=== PATIENT | female | born 1955 | race Caucasian/White ===

== ENCOUNTER 2020-06-26 09:45 | Emergency (ER) | payer BC ==
[~2020-06-26] VITALS: Ht 167.6 cm; Wt 83.5 kg
[2020-06-26 09:50] VITALS: Ht 167.6 cm; Wt 83.5 kg
[2020-06-26 10:11] LABS: BASOPHIL % 0.7 % (0.2-1.3); PLATELET COUNT 284 x10^3mcL (179-408); RED CELL DISTRIBUTION WIDTH 12.8 % (12.3-17.7)
[2020-06-26 10:32] LABS: CALCIUM 9.3 mg/dL (8.5-10.1); CARBON DIOXIDE 24.1 mmol/L (21-32); CHLORIDE SERUM 108 mmol/L (98-107); CREATININE SERUM 0.9 mg/dL (0.6-1.0); GFR1 > 60 mL/min; GLUCOSE SERUM 106 mg/dL (74-106); POTASSIUM SERUM 3.5 mmol/L (3.5-5.1); SODIUM SERUM 144 mmol/L (136-145)
[2020-06-26 10:36] LABS: ALBUMIN 3.6 g/dL (3.4-5.0); ALKALINE PHOSPHATASE 120 U/L (46-116); ALT/SGPT 59 U/L (14-59); AST/SGOT 37 U/L (15-37); BILIRUBIN TOTAL 1.2 mg/dL (0.20-1.00); TOTAL PROTEIN, SERUM 7.3 g/dL (6.4-8.2)
[2020-06-26] MEDS ORDERED: ACETAMINOPHEN-H1 TA1 PO (11:30)
[2020-06-26] MEDS ORDERED: MOT600 PO (11:30)
[2020-06-26 11:45] VITALS: BP 128/74
== END 2020-06-26 11:45 | disposition home or self-care (01) ==
LOC: ED 09:45
PROVIDERS: Emergency Medicine
DX: K63.89 Other specified diseases of intestine (principal); N20.0 Calculus of kidney; E78.00 Pure hypercholesterolemia, unspecified; G43.909 Migraine, unspecified, not intractable, without status migrainosus; Z90.49 Acquired absence of other specified parts of digestive tract; Z87.442 Personal history of urinary calculi; Z90.89 Acquired absence of other organs; Z98.890 Other specified postprocedural states
CPT/HCPCS: J1885